=== PATIENT | female | born 1955 | race Caucasian/White ===

== ENCOUNTER 2016-08-18 10:22 | Emergency (ER) | payer OTHER, MEDICAID ==
[~2016-08-18] VITALS: Ht 165.1 cm; Wt 59.0 kg
[2016-08-18 10:24] VITALS: BP 152/80; PULSE 84; RESP 20; TEMP 97.8; O2SAT 99
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
[2016-08-18] MEDS ORDERED: CYCL1TAB29 PO (12:07)
[2016-08-18] MEDS ORDERED: IBUP800T23 PO (12:07)
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
== END 2016-08-18 13:03 | disposition home or self-care (01) ==
LOC: NEPB 10:22
DX: S06.0X0A Concussion without loss of consciousness, initial encounter (principal); T14.8 Other injury of unspecified body region; M62.838 Other muscle spasm; F17.210 Nicotine dependence, cigarettes, uncomplicated; V43.52XA Car driver injured in collision with other type car in traffic accident, initial encounter; Y93.89 Activity, other specified; Y92.414 Local residential or business street as the place of occurrence of the external cause; Y99.9 Unspecified external cause status
CPT/HCPCS: 70450; 73502